=== PATIENT | female | born 1945 | race Caucasian/White ===

== ENCOUNTER 2020-06-24 07:50 | Emergency (ER) | payer MEDICARE, OTHER ==
[~2020-06-24] VITALS: Ht 182.9 cm; Wt 59.0 kg
[2020-06-24] MEDS ORDERED: HYDROmorphone HCL 2 MG TAB PO ONE (10:15)
[2020-06-24 10:56] VITALS: BP 141/77
== END 2020-06-24 11:05 | disposition home or self-care (01) ==
LOC: ER 07:50
DX: G89.29 Other chronic pain (principal)

== ENCOUNTER 2021-04-10 08:55 | Inpatient (IN) | payer MEDICARE, OTHER ==
[~2021-04-10] VITALS: Ht 162.6 cm; Wt 95.5 kg
[2021-04-10 10:22] LABS: Hematocrit 32.5 % (36.0-46.0); Hemoglobin 11.1 g/dL (12.2-16.2); Mean Corpuscular Hemoglobin 27.7 pg (28.0-32.0); Mean Corpuscular Hgb Conc. 34.2 g/dL (32.0-36.0); Mean Corpuscular Volume 80.8 fL (80.0-100.0); Red Blood Cells 4.02 10^6/uL (4.0-5.20); Red Cell Distribution Width 16.4 % (11.8-14.3); White Blood Cell 6.1 10^3/uL (4.4-10.8)
[2021-04-10] MEDS ORDERED: SODIUM CHLORIDE 0.9% 1,000 ML IV ONE (10:30)
[2021-04-10] MEDS ORDERED: SODIUM CHLORIDE 0.9% 500 ML IVB ONE (10:30)
[2021-04-10 10:31] LABS: Basophils % (manual) 0 (0.0-2.0); Blast Cells 0; Eosinophils % (manual) 0 (0-7); Metamyelocytes % 0; Myelocytes % 0; Promyelocytes % 0
[2021-04-10 10:37] LABS: Albumin 2.8 g/dL (3.4-5.0)
[2021-04-10 10:40] LABS: BUN/Creatinine Ratio 14.7; Bilirubin, Total 0.6 mg/dL (0.2-1.0); Total Protein 6.5 g/dL (6.4-8.2)
[2021-04-10 11:18] LABS: Magnesium 1.2 mg/dL (1.6-2.6)
[2021-04-10 11:50] LABS: Calcium 13.7 mg/dL (8.5-10.1); Potassium 2.7 mmol/L (3.5-5.1)
[2021-04-10] MEDS ORDERED: POTASSIUM EFFERVESENT TAB 25 MEQ PO ONE (12:00)
[2021-04-10] MEDS ORDERED: methylPREDNISolone SOD SUCC 125 MG/2 ML VL IV ONE (12:00)
[2021-04-10] MEDS ORDERED: FUROSEMIDE 40 MG/4 ML VIAL IV ONE (12:00)
[2021-04-10 12:05] LABS: Band Neutrophils % (manual) 5; Lymphocytes % (manual) 45 (10.0-50.0); Monocytes % (manual) 8 (0-12); Reactive Lymphocytes 6
[2021-04-10] MEDS: MAGNESIUM SULFATE 1GM/100ML 100 ML IV SCH ×3 (13:30→16:34)
[2021-04-10 14:43] LABS: Urine Bacteria NONE SEEN /hpf (None Seen); Urine Blood Negative /uL (Negative); Urine Hyaline Cast FEW /lpf (0 - 2); Urine Specific Gravity 1.011 (1.001-1.035); Urine WBC 10 /hpf (0 - 5)
[2021-04-10 14:57] LABS: Alcohol, Urine < 3.0 mg/dL (0-10); Amphetamine Screen, Urine NEGATIVE (NEGATIVE); Barbiturate Scree,Urine NEGATIVE (NEGATIVE); Benzodiazephine Screen, Urine NEGATIVE (NEGATIVE); Cannabinoid Screen, Urine NEGATIVE (NEGATIVE); Cocaine Screen, Urine NEGATIVE (NEGATIVE); Opiate Scree,Urine NEGATIVE (NEGATIVE); Phencyclidine Screen, Urine NEGATIVE (NEGATIVE)
[2021-04-10] MEDS: SODIUM CHLORIDE 0.9% 1,000 ML IV SCH ×2 (16:34→23:30)
[2021-04-10] MEDS ORDERED: POTASSIUM CHLORIDE 60 MEQ, LIDOCAINE 1% (LOCAL ANESTH.) 6 ML in SODIUM CHL 0.9% 500 ML IV ONE (18:00)
[2021-04-10] MEDS ORDERED: D5W/SOD CHL 0.45%/KCL 20MEQ 1,000 ML IV ONE (18:00)
[2021-04-10] MEDS ORDERED: NITROGLYCERIN 0.4 MG SL TAB SL PRN (18:00)
[2021-04-10] MEDS ORDERED: MORPHINE SULF INJ 2 MG/ML SYRINGE 1ML IV PRN (18:00)
[2021-04-10 22:00] VITALS: BP 110/67
[2021-04-10] MEDS: PANTOPRAZOLE 40 MG/10 ML VIAL INJ IV SCH (22:22)
[2021-04-11 04:45] VITALS: BP 132/76
[2021-04-11] MEDS: SODIUM CHLORIDE 0.9% 1,000 ML IV SCH ×3 (07:30→23:30)
[2021-04-11 08:59] VITALS: BP 136/77
[2021-04-11] MEDS: PANTOPRAZOLE 40 MG/10 ML VIAL INJ IV SCH ×2 (10:00→22:30)
[2021-04-11 10:43] LABS: Hematocrit 34.3 % (36.0-46.0); Hemoglobin 11.6 g/dL (12.2-16.2); Mean Corpuscular Hemoglobin 27.9 pg (28.0-32.0); Mean Corpuscular Hgb Conc. 33.8 g/dL (32.0-36.0); Mean Corpuscular Volume 82.5 fL (80.0-100.0); Red Blood Cells 4.16 10^6/uL (4.0-5.20); Red Cell Distribution Width 16.9 % (11.8-14.3); White Blood Cell 10.9 10^3/uL (4.4-10.8)
[2021-04-11 12:30] LABS: Basophils % (manual) 0 (0.0-2.0); Blast Cells 0; Eosinophils % (manual) 0 (0-7); Metamyelocytes % 0; Myelocytes % 0; Promyelocytes % 0; Reactive Lymphocytes 0
[2021-04-11 13:08] VITALS: BP 128/74
[2021-04-11 13:34] LABS: Band Neutrophils % (manual) 5; Lymphocytes % (manual) 37 (10.0-50.0); Monocytes % (manual) 9 (0-12)
[2021-04-11 16:10] LABS: Potassium 3.5 mmol/L (3.5-5.1)
[2021-04-11 16:11] LABS: BUN/Creatinine Ratio 23.7; Bilirubin, Total 0.5 mg/dL (0.2-1.0); Phosphorus 1.3 mg/dL (2.5-4.90); Total Protein 6.1 g/dL (6.4-8.2)
[2021-04-11 16:12] LABS: Albumin 2.7 g/dL (3.4-5.0); Magnesium 1.6 mg/dL (1.6-2.6)
[2021-04-11 17:00] VITALS: BP 155/64
[2021-04-11] MEDS ORDERED: FUROSEMIDE 40 MG/4 ML VIAL IV ONE (17:45)
[2021-04-11] MEDS ORDERED: POTASSIUM PHOSPHATE 22 MEQ in SODIUM CHL 0.9% 100 ML IV ONE (17:45)
[2021-04-11] MEDS: MAGNESIUM SULFATE 1GM/100ML 100 ML IV SCH ×4 (18:15→22:29)
[2021-04-11 22:00] VITALS: BP 118/92
[2021-04-12 05:00] VITALS: BP 127/64
[2021-04-12 05:54] LABS: Hematocrit 30.4 % (36.0-46.0); Hemoglobin 10.7 g/dL (12.2-16.2); Mean Corpuscular Hemoglobin 28.3 pg (28.0-32.0); Mean Corpuscular Hgb Conc. 35.1 g/dL (32.0-36.0); Mean Corpuscular Volume 80.5 fL (80.0-100.0); Red Blood Cells 3.77 10^6/uL (4.0-5.20); Red Cell Distribution Width 17.4 % (11.8-14.3); White Blood Cell 6.1 10^3/uL (4.4-10.8)
[2021-04-12 06:24] LABS: Potassium 3.2 mmol/L (3.5-5.1)
[2021-04-12 06:34] LABS: Albumin 2.7 g/dL (3.4-5.0); BUN/Creatinine Ratio 23.2; Bilirubin, Total 0.6 mg/dL (0.2-1.0); Calcium 12.6 mg/dL (8.5-10.1); Total Protein 6.2 g/dL (6.4-8.2)
[2021-04-12 06:59] LABS: Band Neutrophils % (manual) 0; Basophils % (manual) 0 (0.0-2.0); Blast Cells 0; Eosinophils % (manual) 0 (0-7); Metamyelocytes % 0; Myelocytes % 0; Promyelocytes % 0; Reactive Lymphocytes 0
[2021-04-12 08:00] VITALS: BP 156/110
[2021-04-12 08:06] LABS: Immunoglobulin G, Serum 1357 mg/dL (586-1602)
[2021-04-12 08:15] LABS: Lymphocytes % (manual) 45 (10.0-50.0); Monocytes % (manual) 7 (0-12)
[2021-04-12 09:00] VITALS: BP 156/110
[2021-04-12] MEDS ORDERED: ZOLEDRONIC ACID 4 MG in SODIUM CHL 0.9% 100 ML IV ONE (10:00)
[2021-04-12] MEDS: SODIUM CHLORIDE 0.9% 1,000 ML IV SCH ×3 (10:40→23:30)
[2021-04-12] MEDS: PANTOPRAZOLE 40 MG/10 ML VIAL INJ IV SCH ×2 (10:40→22:14)
[2021-04-12 16:03] VITALS: BP 101/59
[2021-04-12 22:00] VITALS: BP 171/80
[2021-04-12] MEDS: POTASSIUM CHL 20MEQ/100ML 100 ML IV SCH (22:30)
[2021-04-13] MEDS: POTASSIUM CHL 20MEQ/100ML 100 ML IV SCH (02:37)
[2021-04-13 05:00] VITALS: BP 134/71
[2021-04-13 06:11] LABS: Potassium 3.6 mmol/L (3.5-5.1)
[2021-04-13 06:17] LABS: Albumin 2.5 g/dL (3.4-5.0); BUN/Creatinine Ratio 22.4; Bilirubin, Total 0.6 mg/dL (0.2-1.0); Calcium 12.2 mg/dL (8.5-10.1); Total Protein 5.9 g/dL (6.4-8.2)
[2021-04-13] MEDS: SODIUM CHLORIDE 0.9% 1,000 ML IV SCH ×3 (07:30→21:22)
[2021-04-13 09:00] VITALS: BP 168/86
[2021-04-13] MEDS: PANTOPRAZOLE 40 MG/10 ML VIAL INJ IV SCH ×2 (09:10→21:21)
[2021-04-13] MEDS: hydrALAZINE HCL 20 MG/ML VL IV PRN ×2 (09:50→17:13)
[2021-04-13 13:00] VITALS: BP 136/70
[2021-04-13 16:37] VITALS: BP 183/74
[2021-04-13 22:00] VITALS: BP 127/65
[2021-04-14 05:09] VITALS: BP 155/73
[2021-04-14] MEDS: SODIUM CHLORIDE 0.9% 1,000 ML IV SCH ×2 (06:20→15:30)
[2021-04-14 09:00] VITALS: BP 154/81
[2021-04-14] MEDS: hydrALAZINE HCL 20 MG/ML VL IV PRN ×2 (09:30→21:04)
[2021-04-14] MEDS: PANTOPRAZOLE 40 MG/10 ML VIAL INJ IV SCH ×2 (09:38→21:04)
[2021-04-14 13:00] VITALS: BP 147/70
[2021-04-14 16:48] VITALS: BP 146/72
[2021-04-14 21:41] LABS: Hematocrit 28.1 % (36.0-46.0); Hemoglobin 9.5 g/dL (12.2-16.2); Mean Corpuscular Hemoglobin 27.7 pg (28.0-32.0); Mean Corpuscular Hgb Conc. 33.8 g/dL (32.0-36.0); Mean Corpuscular Volume 81.9 fL (80.0-100.0); Red Blood Cells 3.43 10^6/uL (4.0-5.20); Red Cell Distribution Width 17.6 % (11.8-14.3); White Blood Cell 4.2 10^3/uL (4.4-10.8)
[2021-04-14 21:45] LABS: Basophils % (manual) 0 (0.0-2.0); Blast Cells 0; Eosinophils % (manual) 0 (0-7); Metamyelocytes % 0; Promyelocytes % 0; Reactive Lymphocytes 0
[2021-04-14 22:00] VITALS: BP 154/77
[2021-04-14 22:13] LABS: Calcium 10.2 mg/dL (8.5-10.1); Potassium 3.1 mmol/L (3.5-5.1)
[2021-04-14 22:17] LABS: BUN/Creatinine Ratio 24.7
[2021-04-14 22:29] LABS: Band Neutrophils % (manual) 22; Lymphocytes % (manual) 50 (10.0-50.0); Monocytes % (manual) 5 (0-12); Myelocytes % 1
[2021-04-14] MEDS: POTASSIUM CHL 20MEQ/100ML 100 ML IV SCH (23:18)
[2021-04-14] MEDS: D5W/SOD CHL 0.45% 1,000 ML IV SCH (23:18)
[2021-04-15] MEDS: POTASSIUM CHL 20MEQ/100ML 100 ML IV SCH ×2 (01:20→03:33)
[2021-04-15 05:21] VITALS: BP 143/74
[2021-04-15 07:34] LABS: Anion Gap 4 (5-15); Calcium 9.4 mg/dL (8.5-10.1); Carbon Dioxide 24 mmol/L (21-32); Chloride 126 mmol/L (98-107); GFR African American 86 mL/min; GFR Non-African American 71 mL/min; Glucose 148 mg/dL (74-106); Potassium 3.6 mmol/L (3.5-5.1); Sodium 154 mmol/L (136-145)
[2021-04-15 07:38] LABS: BUN/Creatinine Ratio 21.7; Blood Urea Nitrogen 18 mg/dL (7-18)
[2021-04-15 08:00] VITALS: BP 166/78
[2021-04-15] MEDS: levoFLOXacin 500MG 100 ML IV SCH (08:46)
[2021-04-15] MEDS: PANTOPRAZOLE 40 MG/10 ML VIAL INJ IV SCH ×2 (08:47→21:09)
[2021-04-15] MEDS: hydrALAZINE HCL 20 MG/ML VL IV PRN (08:50)
[2021-04-15 09:00] VITALS: BP 163/81
[2021-04-15] MEDS ORDERED: KETOROLAC TROMETH 30 MG/ML 1ML VIAL IV ONE (11:30)
[2021-04-15 13:00] VITALS: BP 142/65
[2021-04-15 17:00] VITALS: BP 137/74
[2021-04-15] MEDS: D5W/SOD CHL 0.45% 1,000 ML IV SCH (17:23)
[2021-04-15 17:32] LABS: INR 1.3 (0.9-1.15); Partial Thromboplastin Time 30.5 sec (23.0-31.2)
[2021-04-15 22:00] VITALS: BP 98/50
[2021-04-16] MEDS: MORPHINE SULF INJ 2 MG/ML SYRINGE 1ML IV PRN (00:56)
[2021-04-16] MEDS: D5W/SOD CHL 0.45% 1,000 ML IV SCH ×2 (03:36→17:13)
[2021-04-16 05:00] VITALS: BP 126/26
[2021-04-16 05:47] LABS: INR 1.27 (0.9-1.15)
[2021-04-16 05:51] LABS: Potassium 3.4 mmol/L (3.5-5.1)
[2021-04-16 06:00] LABS: Albumin 2.3 g/dL (3.4-5.0); Bilirubin, Total 0.5 mg/dL (0.2-1.0); Calcium 9.2 mg/dL (8.5-10.1); Total Protein 5.4 g/dL (6.4-8.2)
[2021-04-16 07:35] VITALS: BP 139/70
[2021-04-16 07:38] LABS: Hemoglobin 8.9 g/dL (12.2-16.2); Mean Corpuscular Hemoglobin 27.3 pg (28.0-32.0); Mean Corpuscular Hgb Conc. 32.9 g/dL (32.0-36.0); Mean Corpuscular Volume 82.8 fL (80.0-100.0); Red Blood Cells 3.25 10^6/uL (4.0-5.20); Red Cell Distribution Width 17.4 % (11.8-14.3); White Blood Cell 3.6 10^3/uL (4.4-10.8)
[2021-04-16 07:46] LABS: Basophils % (manual) 0 (0.0-2.0); Blast Cells 0; Myelocytes % 0; Promyelocytes % 0
[2021-04-16 08:19] LABS: Band Neutrophils % (manual) 1; Eosinophils % (manual) 1 (0-7); Lymphocytes % (manual) 50 (10.0-50.0); Metamyelocytes % 1; Monocytes % (manual) 9 (0-12); Reactive Lymphocytes 1
[2021-04-16] MEDS ORDERED: LIDOCAINE VISCOUS 2% 15ML UD ONE (08:59)
[2021-04-16 09:00] VITALS: BP 139/70
[2021-04-16] MEDS ORDERED: MIDAZOLAM HCL 5 MG/ML-1ML VIAL ONE (09:00)
[2021-04-16] MEDS ORDERED: diphenhdrAMINE HCL 50 MG/1 ML VL ONE (09:00)
[2021-04-16] MEDS ORDERED: fentaNYL CITRATE 100 MCG/2 ML VL ONE (09:00)
[2021-04-16] MEDS: PANTOPRAZOLE 40 MG/10 ML VIAL INJ IV SCH ×2 (09:36→21:45)
[2021-04-16] MEDS: levoFLOXacin 500MG 100 ML IV SCH (09:36)
[2021-04-16 13:00] VITALS: BP 126/59
[2021-04-16] MEDS ORDERED: IOHEXOL 300 MG/ML 100ML BOTTLE IJ ONE (14:47)
[2021-04-16 17:00] VITALS: BP 118/66
[2021-04-16 22:00] VITALS: BP 139/70
[2021-04-17 05:00] VITALS: BP 124/60
[2021-04-17] MEDS: MORPHINE SULF INJ 2 MG/ML SYRINGE 1ML IV PRN ×2 (05:37→21:41)
[2021-04-17 05:57] LABS: Mean Corpuscular Volume 82.5 fL (80.0-100.0)
[2021-04-17 05:59] LABS: Hematocrit 23.6 % (36.0-46.0); Hemoglobin 8.1 g/dL (12.2-16.2); Mean Corpuscular Hemoglobin 28.2 pg (28.0-32.0); Mean Corpuscular Hgb Conc. 34.2 g/dL (32.0-36.0); Red Blood Cells 2.86 10^6/uL (4.0-5.20); Red Cell Distribution Width 17.8 % (11.8-14.3)
[2021-04-17 06:13] LABS: Basophils % (manual) 0 (0.0-2.0); Blast Cells 0; Eosinophils % (manual) 0 (0-7); Metamyelocytes % 0; Myelocytes % 0; Promyelocytes % 0
[2021-04-17 06:15] LABS: Potassium 3.1 mmol/L (3.5-5.1)
[2021-04-17 06:19] LABS: Calcium 8.4 mg/dL (8.5-10.1)
[2021-04-17] MEDS: D5W/SOD CHL 0.45% 1,000 ML IV SCH ×4 (08:12→23:27)
[2021-04-17 08:30] VITALS: BP 139/62
[2021-04-17 08:38] LABS: Band Neutrophils % (manual) 10; Lymphocytes % (manual) 50 (10.0-50.0); Monocytes % (manual) 11 (0-12); Reactive Lymphocytes 3
[2021-04-17 09:00] VITALS: BP 139/62
[2021-04-17] MEDS: levoFLOXacin 500MG 100 ML IV SCH (09:04)
[2021-04-17] MEDS: PANTOPRAZOLE 40 MG/10 ML VIAL INJ IV SCH ×2 (09:04→21:41)
[2021-04-17] MEDS: Ensure Enlive Chocolate 8oz Bottle PO SCH ×2 (12:00→18:00)
[2021-04-17 13:00] VITALS: BP 112/54
[2021-04-17] MEDS ORDERED: POTASSIUM CHL 20MEQ/100ML 100 ML IV ONE (15:15)
[2021-04-17 17:00] VITALS: BP 120/68
[2021-04-17] MEDS: POTASSIUM CHL 20MEQ/100ML 100 ML IV SCH ×3 (17:33→21:40)
[2021-04-17 22:00] VITALS: BP 125/68
[2021-04-18] VITALS (7 sets, daily range): BP systolic 122–139; BP diastolic 55–68
[2021-04-18] MEDS: Ensure Enlive Chocolate 8oz Bottle PO SCH ×3 (07:59→18:04)
[2021-04-18] MEDS: levoFLOXacin 500MG 100 ML IV SCH (09:14)
[2021-04-18] MEDS: PANTOPRAZOLE 40 MG/10 ML VIAL INJ IV SCH ×2 (09:15→23:03)
[2021-04-18] MEDS: MORPHINE SULF INJ 2 MG/ML SYRINGE 1ML IV PRN (10:23)
[2021-04-18 11:31] LABS: Hepatitis B Surface Antibody Negative
[2021-04-18 12:42] LABS: Hepatitis B Surface Antigen Negative (Negative)
[2021-04-18] MEDS: D5W/SOD CHL 0.45% 1,000 ML IV SCH (14:03)
[2021-04-19] MEDS: D5W/SOD CHL 0.45% 1,000 ML IV SCH ×2 (03:00→17:33)
[2021-04-19 05:00] VITALS: BP 125/58
[2021-04-19 06:14] LABS: Hematocrit 23.8 % (36.0-46.0); Hemoglobin 8.1 g/dL (12.2-16.2); Mean Corpuscular Hemoglobin 27.9 pg (28.0-32.0); Mean Corpuscular Hgb Conc. 34.2 g/dL (32.0-36.0); Mean Corpuscular Volume 81.7 fL (80.0-100.0); Red Blood Cells 2.91 10^6/uL (4.0-5.20); Red Cell Distribution Width 17.5 % (11.8-14.3)
[2021-04-19 06:18] LABS: Basophils % (manual) 0 (0.0-2.0); Eosinophils % (manual) 0 (0-7); Metamyelocytes % 0; Myelocytes % 0; Promyelocytes % 0; Reactive Lymphocytes 0
[2021-04-19 06:26] LABS: INR 1.19 (0.9-1.15); Partial Thromboplastin Time 37.1 sec (23.0-31.2)
[2021-04-19 06:37] LABS: Potassium 3.2 mmol/L (3.5-5.1)
[2021-04-19 06:49] LABS: BUN/Creatinine Ratio 17.6; Calcium 8.3 mg/dL (8.5-10.1)
[2021-04-19 07:02] LABS: Band Neutrophils % (manual) 17; Blast Cells 1; Lymphocytes % (manual) 47 (10.0-50.0); Monocytes % (manual) 6 (0-12)
[2021-04-19 09:00] VITALS: BP 123/57
[2021-04-19] MEDS: MORPHINE SULF INJ 2 MG/ML SYRINGE 1ML IV PRN ×3 (10:00→22:33)
[2021-04-19] MEDS: PANTOPRAZOLE 40 MG/10 ML VIAL INJ IV SCH ×2 (10:01→22:21)
[2021-04-19] MEDS: levoFLOXacin 500MG 100 ML IV SCH (10:01)
[2021-04-19 13:00] VITALS: BP 124/58
[2021-04-19] MEDS: Ensure Enlive Chocolate 8oz Bottle PO SCH ×3 (13:13→17:33)
[2021-04-19] MEDS ORDERED: fentaNYL CITRATE 100 MCG/2 ML VL ONE (15:44)
[2021-04-19] MEDS ORDERED: MIDAZOLAM HCL 1MG/1ML-2 ML VIAL ONE (15:44)
[2021-04-19] MEDS ORDERED: LIDOCAINE 2%HCL (LOCAL ANESTH.) INJ 20ML MDV ONE (16:57)
[2021-04-19 22:00] VITALS: BP 127/61
[2021-04-20 05:00] VITALS: BP 121/57
[2021-04-20] MEDS: MORPHINE SULF INJ 2 MG/ML SYRINGE 1ML IV PRN (05:19)
[2021-04-20 08:00] VITALS: BP 126/53
[2021-04-20] MEDS: Ensure Enlive Chocolate 8oz Bottle PO SCH ×3 (08:00→18:00)
[2021-04-20] MEDS: D5W/SOD CHL 0.45% 1,000 ML IV SCH (08:31)
[2021-04-20 09:00] VITALS: BP 126/53
[2021-04-20] MEDS: PANTOPRAZOLE 40 MG/10 ML VIAL INJ IV SCH (10:12)
[2021-04-20] MEDS: levoFLOXacin 500MG 100 ML IV SCH (10:12)
[2021-04-20 13:00] VITALS: BP 102/41
[2021-04-20 16:58] VITALS: BP 105/45
== END 2021-04-20 20:20 | DRG 640 ==
LOC: EDBD 08:55 → ER 08:55 → EDUNIT# 08:55 → TELE 17:46 → EDBD 17:46 → TELE-WESTW 20:43
PROVIDERS: ADMIT Specialist; ATTEND Specialist
PROC: 0WBH3ZX Excision of Retroperitoneum, Percutaneous Approach, Diagnostic (ICD-10-PCS; principal; 2021-04-19)
DX: E87.6 Hypokalemia (principal); G93.41 Metabolic encephalopathy; N39.0 Urinary tract infection, site not specified; D61.818 Other pancytopenia; E44.0 Moderate protein-calorie malnutrition; E87.1 Hypo-osmolality and hyponatremia; Z20.822 Contact with and (suspected) exposure to COVID-19; E83.42 Hypomagnesemia; E83.52 Hypercalcemia; E11.9 Type 2 diabetes mellitus without complications; E78.5 Hyperlipidemia, unspecified; E66.9 Obesity, unspecified; I70.0 Atherosclerosis of aorta; R13.10 Dysphagia, unspecified; I10 Essential (primary) hypertension; I45.10 Unspecified right bundle-branch block; B95.2 Enterococcus as the cause of diseases classified elsewhere; F03.90 Unspecified dementia, unspecified severity, without behavioral disturbance, psychotic disturbance, mood disturbance, and anxiety; I25.2 Old myocardial infarction; Z90.710 Acquired absence of both cervix and uterus; Z68.34 Body mass index [BMI] 34.0-34.9, adult; Z79.899 Other long term (current) drug therapy; Z74.01 Bed confinement status; R59.0 Localized enlarged lymph nodes
CPT/HCPCS: 10022; 36415; 36600; 70450; 71045; 74150; 74177; 77012; 80048; 80053; 80307; 81001; 82306; 82607; 82784; 82805; 82962; 83615; 83735; 83883; 83970; 84100; 84155; 84165; 84443; 84484; 85007; 85027; 85045; 85049; 85379; 85610; 85730; 86038; 86225; 86235; 86334; 86703; 86706; 86803; 86880; 87040; 87086; 87088; 87186; 87340; 87426; 92610; 93005; 96361; 96374; 96375; C9113; G0378; J1885; J1956; J2001; J2250; J3480; J3489